=== PATIENT | female | born 1965 | race Caucasian/White ===

== ENCOUNTER → 2019-02-22 | Outpatient (CLI) | payer BC ==
--- NOTE | 2019-02-22 15:27 | RAD ---
CLINICAL HISTORY: Thyroid nodule, thyroid prominence COMPARISON: None available. TECHNIQUE: Ultrasound examination of the thyroid gland was performed FINDINGS: Right thyroid measures 4.4 x 1.4 x 1.4 cm. The left thyroid measures 4.3 x 1.3 x 1.7 cm. The isthmus measures 0.2 cm in thickness. Within the interpolar region of the right thyroid, there is a peripherally calcified 1 x 1 x 1 cm hypoechoic nodule. No dominant left upper pole thyroid nodule measures up to 4 mm. There is no regional cervical lymphadenopathy. IMPRESSION: A 1 cm peripherally calcified right thyroid nodule is seen. As per TI-RADS criteria, follow-up of a 1 cm TR 4 lesion is recommended. Electronically signed by: Alfonso Light MD (02/22/2019 3:24 PM) [facility]
== END | disposition home or self-care (01) ==
LOC: US 09:52
PROVIDERS: ATTEND Physician Assistant Medical
DX: E04.1 Nontoxic single thyroid nodule (principal)
CPT/HCPCS: 76536

== ENCOUNTER → 2019-04-06 | Outpatient (CLI) | payer BC ==
--- NOTE | 2019-04-07 12:29 | RAD ---
WRIST BILAT 3V History: Wrist pain Technique:3 views bilateral wrists. Comparison: None. Findings: Right wrist: Moderate right first carpometacarpal and mild triscaphe DJD. Normal limit. No fracture. Left wrist: Moderate first carpometacarpal and mild triscaphe DJD. Normal alignment. No fracture. Impression: 1. Moderate first carpometacarpal DJD bilaterally. Electronically signed by: Lorenzo Arroyo DO (04/07/2019 12:26 PM) [facility]
== END | disposition home or self-care (01) ==
LOC: DXRAD 12:50
PROVIDERS: ATTEND Physician Assistant Medical
DX: M19.032 Primary osteoarthritis, left wrist (principal); M19.031 Primary osteoarthritis, right wrist
CPT/HCPCS: 73110

== ENCOUNTER 2019-09-07 15:42 | Emergency (ER) | payer BC ==
[~2019-09-07] VITALS: Ht 167.6 cm; Wt 65.0 kg
[~2019-09-07 15:42] MED LIST: ARIP5TAB13 PO; BENZ1TAB5 PO; CLON0.5T4 PO; ESCITALOPRAM OX20 MG PO; IBUP200T44 PO; LISI10TA2 PO; OXCA600T3 PO; QUET300T5 PO
[2019-09-07 16:04] VITALS: BP 127/87
[2019-09-07] MEDS ORDERED: IOHEXOL 240 MG/ML 50ML VIAL. ONE (16:13)
[2019-09-07] MEDS ORDERED: CONTRAST GIVEN MC PRN (16:30)
[2019-09-07] MEDS: IV NORMAL SALINE 1,000ML 1,000 ML IV ONE (16:40)
[2019-09-07 16:58] LABS: BACTERIA,URINE 0 /HPF (0-FEW); BILIRUBIN,URINE NEG (NEG); CLARITY,URINE CLEAR; COLOR,URINE YELLOW; GLUCOSE,URINE NEG (NEG); GRANULAR CASTS,URINE OCC /HPF; HYALINE CASTS, URINE OCC /HPF; NITRITE,URINE NEG (NEG); RBC,URINE 0 /HPF (0-2); SQUAMOUS EPITHELIAL CELL,UR OCC /LPF; UROBILINOGEN,URINE 0.2 mg/dL (0.2 mg/dL)
[2019-09-07 16:58] LABS: BASO # 0.1 x10^3/uL (0.0-0.2); BASO % 1 % (0-3); EOS # 0.4 x10^3/uL (0.0-0.7); EOS % 6 % (0-3); HEMATOCRIT 40.5 % (36.0-47.0); HEMOGLOBIN 13.9 g/dL (12.0-15.5); LYMPH # 1.6 x10^3/uL (1.0-4.8); LYMPH % 24 % (24-48); MEAN CORPUSCULAR HEMOGLOBIN 30 pg (25-35); MEAN CORPUSCULAR HGB CONC 34 g/dL (31-37); MEAN CORPUSCULAR VOLUME 87 fL (79-100); MONO # 0.6 x10^3/uL (0.0-1.1); MONO % 9 % (0-9); NEUT % 60 % (31-73); PLATELET COUNT 342 x10^3/uL (140-400); RED BLOOD COUNT 4.68 x10^6/uL (3.50-5.40); WHITE BLOOD COUNT 6.6 x10^3/uL (4.0-11.0)
[2019-09-07] MEDS: IOHEXOL 300 MG/ML 75 ML VIAL. IV ONE (17:35)
[2019-09-07] MEDS: IOHEXOL 240 MG/ML 50ML VIAL. PO ONE (17:35)
[2019-09-07 17:45] LABS: CALCIUM 8.4 mg/dL (8.5-10.1); CREATININE 0.8 mg/dL (0.6-1.0); POTASSIUM 4.1 mmol/L (3.5-5.1)
[2019-09-07 17:50] LABS: ALBUMIN 3.6 g/dL (3.4-5.0); ALBUMIN/GLOBULIN RATIO 1.1 (1.0-1.7); TOTAL BILIRUBIN 0.2 mg/dL (0.2-1.0); TOTAL PROTEIN 6.9 g/dL (6.4-8.2)
--- NOTE | 2019-09-07 18:12 | PHYS DOC ---
Past History Past Medical History: Anxiety, Hypertension, Other Additional Past Medical Histor: Bipolar Past Surgical History: Hysterectomy Smoking: Cigarettes Additional Smoking Information: 06/10 PPD Alcohol Use: None Drug Use: None Adult General Chief Complaint Chief Complaint: ABDOMINAL PAIN HPI HPI 54-year-old female presents with report of abdominal discomfort with inability to urinate times one day. Patient also complains of constipation issues for the last week. Reports has not had a good bowel movement. Patient does report history of chronic constipation for which she is prescribed Linzess. Patient denies nausea or vomiting. Denies fever or chills. Denies trauma. Denies history of urinary retention. Denies history of kidney stones. Review of Systems Review of Systems Constitutional: Denies fever or chills Eyes: Denies redness or eye pain HENT: Denies nasal congestion or sore throat Respiratory: Denies cough or shortness of breath Cardiovascular: Denies chest pain or palpitations GI: Reports abdominal pain and constipation; denies nausea or vomiting : Reports inability to urinate; denies dysuria Musculoskeletal: Denies back pain or joint pain Integument: Denies rash or skin lesions Neurologic: Denies headache, focal weakness or sensory changes Complete systems were reviewed and found to be within normal limits, except as documented in this note. Current Medications Current Medications Current Medications Medications (Trade) Dose Ordered Sig/Maria Start Time Stop Time Status Last Admin Dose Admin Info (Do NOT chart on this entry -- for MONITORING) 1 each PRN DAILY PRN 09/07/19 16:30 09/09/19 16:29 Iohexol (Omnipaque 240 Mg/ml) 50 ml STK-MED ONCE 09/07/19 16:13 09/07/19 16:14 DC Iohexol (Omnipaque 300 Mg/ml) 75 ml 1X ONCE 09/07/19 16:15 09/07/19 16:16 DC 09/07/19 17:35 75 ML Sodium Chloride 1,000 ml @ 1,000 mls/hr 1X ONCE 09/07/19 16:00 09/07/19 16:59 DC 09/07/19 16:40 1,000 MLS/HR Allergies Allergies Allergies Coded Allergies Type Severity Reaction Last Updated Verified No Known Drug Allergies 08/03/19 No Physical Exam Physical Exam Constitutional: Well developed, well nourished, no acute distress, non-toxic appearance HENT: Normocephalic, atraumatic, oropharynx moist Eyes: Conjunctiva normal, no discharge Neck: Normal range of motion, no tenderness, supple Cardiovascular: Heart rate normal, regular rhythm Lungs & Thorax: Bilateral breath sounds clear to auscultation, no wheezing Abdomen: Soft, suprapubic fullness/distention, no rebound tenderness/guarding Skin: Warm, dry, no erythema, no rash Back: No tenderness, no CVA tenderness Extremities: No tenderness, ROM intact, no edema Neurologic: Alert and oriented X 3, no focal deficits noted Psychologic: Affect normal, judgment normal Current Patient Data Vital Signs Vital Signs Date Time Temp Pulse Resp B/P (MAP) Pulse Ox O2 Delivery O2 Flow Rate FiO2 09/07/19 16:04 98.3 88 16 127/87 (100) 97 Room Air Lab Results Laboratory Tests Test 09/07/19 16:25 09/07/19 16:35 Urine Collection Type Unknown Urine Color Yellow Urine Clarity Clear Urine pH 7.0 Urine Specific [place] 1.015 Urine Protein Neg (NEG-TRACE) Urine Glucose (UA) Neg mg/dL (NEG) Urine Ketones (Stick) Neg mg/dL (NEG) Urine Blood Neg (NEG) Urine Nitrite Neg (NEG) Urine Bilirubin Neg (NEG) Urine Urobilinogen Dipstick 0.2 mg/dL (0.2 mg/dL) Urine Leukocyte Esterase Neg (NEG) Urine RBC 0 /HPF (0-2) Urine WBC 1-4 /HPF (0-4) Urine Squamous Epithelial Cells Occ /LPF Urine Bacteria 0 /HPF (0-FEW) Urine Hyaline Casts Occ /HPF Urine Granular Casts Occ /HPF Urine Mucus Slight /LPF White Blood Count 6.6 x10^3/uL (4.0-11.0) Red Blood Count 4.68 x10^6/uL (3.50-5.40) Hemoglobin 13.9 g/dL (12.0-15.5) Hematocrit 40.5 % (36.0-47.0) Mean Corpuscular Volume 87 fL (79-100) Mean Corpuscular Hemoglobin 30 pg (25-35) Mean Corpuscular Hemoglobin Concent 34 g/dL (31-37) Red Cell Distribution Width 14.0 % (11.5-14.5) Platelet Count 342 x10^3/uL (140-400) Neutrophils (%) (Auto) 60 % (31-73) Lymphocytes (%) (Auto) 24 % (24-48) Monocytes (%) (Auto) 9 % (0-9) Eosinophils (%) (Auto) 6 % (0-3) H Basophils (%) (Auto) 1 % (0-3) Neutrophils # (Auto) 4.0 x10^3uL (1.8-7.7) Lymphocytes # (Auto) 1.6 x10^3/uL (1.0-4.8) Monocytes # (Auto) 0.6 x10^3/uL (0.0-1.1) Eosinophils # (Auto) 0.4 x10^3/uL (0.0-0.7) Basophils # (Auto) 0.1 x10^3/uL (0.0-0.2) Sodium Level 131 mmol/L (136-145) L Potassium Level 4.1 mmol/L (3.5-5.1) Chloride Level 96 mmol/L (98-107) L Carbon Dioxide Level 28 mmol/L (21-32) Anion Gap 7 (6-14) Blood Urea Nitrogen 15 mg/dL (7-20) Creatinine 0.8 mg/dL (0.6-1.0) Estimated GFR (Cockcroft-Gault) 75.0 BUN/Creatinine Ratio 19 (6-20) Glucose Level 96 mg/dL (70-99) Calcium Level 8.4 mg/dL (8.5-10.1) L Magnesium Level 2.0 mg/dL (1.8-2.4) Total Bilirubin 0.2 mg/dL (0.2-1.0) Aspartate Amino Transferase (AST) 19 U/L (15-37) Alanine Aminotransferase (ALT) 21 U/L (14-59) Alkaline Phosphatase 119 U/L (46-116) H Total Protein 6.9 g/dL (6.4-8.2) Albumin 3.6 g/dL (3.4-5.0) Albumin/Globulin Ratio 1.1 (1.0-1.7) Lipase 293 U/L (73-393) EKG EKG [] Radiology/Procedures Radiology/Procedures PROCEDURE: CT ABD PELV W/ORAL&IV CONTRAST CT scan of the abdomen and pelvis with contrast 09/07/2019 CLINICAL HISTORY: Lower abdominal pain and constipation. TECHNIQUE: After the oral and intravenous administration of contrast, contiguous, 5 mm axial sections were obtained through abdomen and pelvis. 75 cc of Omnipaque 300 were administered intravenously during this examination. One or more of the following individualized dose reduction techniques were utilized for this study: 1. Automated exposure control. 2. Adjustment of the mA and/or kV according to patient size. 3. Use of iterative reconstruction technique. FINDINGS: Images through the lung bases demonstrate minimal dependent subsegmental atelectasis bilaterally. The liver has a decreased attenuation consistent with fatty infiltration. A 8mm somewhat rounded low-attenuation lesion is seen involving the right lobe of the liver which demonstrates peripheral enhancement consistent with a hemangioma. The pancreas and adrenal glands are within normal limits. Calcified granulomas are seen involving the spleen. A 3.4 cm rounded low-attenuation lesion is seen involving the mid/lower pole the right kidney. This likely represents a cyst. No further imaging workup is recommended. Atrophy of the left kidney is seen. Marked thinning of the left renal cortex is noted. Severe left hydronephrosis is seen. A transition point is seen at the level of the left UPJ consistent with a chronic left UPJ obstruction. Nonobstructing calculi are seen involving the left kidney. These measure 4 to 7 mm in size. Atherosclerotic calcification of the abdominal aorta is seen. The abdominal aorta tapers normally. The gallbladder is contracted. No free fluid or free air is seen within the abdomen. Air and stool are seen throughout the colon. Images through the pelvis demonstrate a Ibrahim catheter within the urinary bladder which is contracted. Calcifications are seen within the pelvis consistent with phleboliths. No free fluid is seen. Very mild S-shaped curvature of the thoracolumbar spine is noted. Degenerative changes are seen involving the thoracic and throughout the lumbar spine along with both hips. IMPRESSION: 1. Severe left hydronephrosis with left renal atrophy and cortical thinning due to a chronic left UPJ obstruction. 2. No acute abnormality is seen. Electronically signed by: Matias Pond MD (09/07/2019 6:08 PM) [id number] Course & Med Decision Making Course & Med Decision Making Pertinent Labs and Imaging studies reviewed. (See chart for details) Patient presents with history of present illness and physical exam concerning for urinary retention and constipation. Bladder scan high. Ibrahim catheter placed with 600 mls returned. UA without signs of infection. Labs obtained and posted to chart. CT abdomen/pelvis with signs of chronic hydronephrosis on left side. Patient given CT imaging to follow-up with PCP and/or urologist. Ibrahim catheter changed to leg bag. Patient stable for discharge with outpatient follow-up with PCP/urologist. Discussed findings and plan with patient, who acknowledges understanding and agreement. Dragon Disclaimer Dragon Disclaimer This electronic medical record was generated, in whole or in part, using a voice recognition dictation system. Departure Departure: Impression: Primary Impression: Urinary retention Additional Impressions: Constipation Hydronephrosis, left Disposition: HOME, SELF-CARE Condition: STABLE Referrals: LEONARD BARNETT (PCP) Patient Instructions: Constipation, Adult, [id number], Ibrahim Catheter Care, Adult, Hydronephrosis, Urinary Retention, Acute, Female, [id number] Additional Instructions: Please call and follow up with an Urologist and/or your family physician. Continue previously prescribed constipation medications. May also add stool softners as needed. Increased fluid hydration. Problem Qualifiers Additional Impressions: Constipation Constipation type: unspecified constipation type Qualified Codes: K59.00 - Constipation, unspecified NORBERT WHITTAKER DO Sep 07, 2019 18:12
== END 2019-09-07 19:45 | disposition home or self-care (01) ==
LOC: ER 15:51
DX: N13.2 Hydronephrosis with renal and ureteral calculous obstruction (principal); K59.00 Constipation, unspecified; R33.9 Retention of urine, unspecified; I10 Essential (primary) hypertension; F17.210 Nicotine dependence, cigarettes, uncomplicated; Z90.710 Acquired absence of both cervix and uterus
CPT/HCPCS: 36415; 51702; 74177; 80053; 81001; 83690; 83735; 85025; 99285; Q9966; Q9967; J7030

== ENCOUNTER 2019-09-28 14:25 | Emergency (ER) | payer BC ==
[~2019-09-28] VITALS: Ht 170.2 cm; Wt 64.1 kg
--- NOTE | 2019-09-28 15:08 | PHYS DOC ---
Past History Past Medical History: Anxiety, Bipolar, Depression, Hypertension, Other Additional Past Medical Histor: mood swings Past Surgical History: Hysterectomy Smoking: Cigarettes Alcohol Use: None Drug Use: None General Adult EDM: Chief Complaint: Neck Pain HPI: HPI: Patient is a 54 year old female with history of hypertension, bipolar disorder, anxiety and depression, mood disorder who presents with complaining of neck pain. Patient states she has had right-sided neck pain intermittently for several years that getting worse for the last 2 days as a muscle spasm and getting worse with movement. Patient complaining of problem with her balance for the last 2 months as a constant problem and bilateral upper and lower extremity numbness with negative MRI of brain and spine 2 weeks ago. Patient denies fever and chills, cough, chest pain or shortness of breath, new focal neuro deficit, vomiting and diarrhea. Patient complaining of chronic constipation. Patient was seen by her primary care physician and anthropology lecturer and neurologist and has appointment with a new physician. Patient states she wanted to have the answer for the reason of her problems. Review of Systems: Review of Systems: Constitutional: Denies fever or chills Eyes: Denies change in visual acuity HENT: Denies nasal congestion or sore throat Respiratory: Denies cough or shortness of breath Cardiovascular: Denies chest pain or edema GI: Denies abdominal pain, nausea, vomiting, bloody stools or diarrhea : Denies dysuria Musculoskeletal: Reports neck pain and chronic pain Integument: Denies rash Neurologic: Denies headache, focal weakness or sensory changes Endocrine: Denies polyuria or polydipsia Lymphatic: Denies swollen glands Psychiatric: Denies depression or anxiety Heart Score: Risk Factors: Risk Factors: DM, Current or recent (<one month) smoker, HTN, HLP, family history of CAD, obesity. Risk Scores: Score 0 - 3: 2.5% MACE over next 6 weeks - Discharge Home Score 4 - 6: 20.3% MACE over next 6 weeks - Admit for Clinical Observation Score 7 - 10: 72.7% MACE over next 6 weeks - Early Invasive Strategies Current Medications: Current Meds: Current Medications Medications (Trade) Dose Ordered Sig/Maria Start Time Stop Time Status Last Admin Dose Admin Fentanyl Citrate (Fentanyl 2ml Vial) 50 mcg 1X ONCE 09/28/19 15:00 09/28/19 15:01 UNV Allergies: Allergies: Allergies Coded Allergies Type Severity Reaction Last Updated Verified No Known Drug Allergies 08/03/19 No Physical Exam: PE: Constitutional: Well developed, well nourished, mild distress, non-toxic appearance. [] HENT: Normocephalic, atraumatic. Eyes: PERRLA, EOMI, conjunctiva normal, no discharge. [] Neck: No midline tenderness, no edema, right para muscle spinal spasm, normal range of motion, no tenderness, supple, no stridor. [] Cardiovascular:Heart rate regular rhythm, no murmur [] Lungs & Thorax: Bilateral breath sounds clear to auscultation [] Abdomen: Bowel sounds normal, soft, no tenderness, no masses, no pulsatile masses. [] Skin: Warm, dry, no erythema, no rash. [] Back: No tenderness, no CVA tenderness. [] Extremities: No tenderness, no cyanosis, no clubbing, ROM intact, no edema. [] Neurologic: Alert and oriented X 3, no focal deficits noted. [] Psychologic: Affect anxious, judgement normal, mood normal. [] Current Patient Data: Vital Signs: Vital Signs Date Time Temp Pulse Resp B/P (MAP) Pulse Ox O2 Delivery O2 Flow Rate FiO2 09/28/19 14:36 98.4 86 16 142/93 (109) 97 Room Air EKG: EKG: [] Radiology/Procedures: Radiology/Procedures: [] Course & Med Decision Making: Course & Med Decision Making Evaluation of patient in ER showed 54-year-old female patient with multiple chronic problem presented to ER and complaining of increasing chronic neck pain and wants to know what is the problem with her. Patient was advised that she needs to follow-up with her specialist and continue home medication. Patient treated with fentanyl in ER and felt better. Patient had unremarkable MRI of head and neck 2 weeks ago and had a stable vital sign and physical exam except for anxiety. I've spoken with the patient and/or caregivers. I've explained the patient's condition, diagnosis and treatment plan based on information available to me at this time. I've answered the patient's and/or caregivers questions and addressed any concerns. The patient and/or caregivers have a good understanding the patient's diagnosis, condition and treatment plan as can be expected at this point. Vital signs have been stabilized. The patient's condition is stable for discharge from the emergency department. The patient will pursue further outpatient evaluation with her primary care provider or other designated consulting physician as outlined in the discharge instructions. Patient and/or caregivers are agreeable to this plan of care and follow-up instructions have been explained in detail. The patient and/or caregivers have received these instructions in written format and expressed understanding of these discharge instructions. The patient and her caregivers are aware that if any significant change in condition or worsening of symptoms should prompt him to immediately return to this of the closest emergency department. If an emergent department is not readily available I would encourage him to call 911. Dragon Disclaimer: Dragon Disclaimer: This electronic medical record was generated, in whole or in part, using a voice recognition dictation system. Departure Departure: Impression: Primary Impression: Cervical paraspinal muscle spasm Additional Impressions: Balance problem History of bipolar disorder Disposition: 01 HOME, SELF-CARE Condition: STABLE Referrals: LEONARD BARNETT (PCP) Patient Instructions: Cervical Sprain Additional Instructions: Drink plenty of liquids Follow-up with your primary care physician in 3-5 days Return to ER if not getting better Continue your current medication Apply ice on your neck Scripts Cyclobenzaprine Hcl (CYCLOBENZAPRINE HCL) 10 Mg Tablet 1 TAB PO TID for pain, #15 TAB Prov: BEKAH GUTHRIE MD 09/28/19 BEKAH GUTHRIE MD Sep 28, 2019 15:08
[2019-09-28 15:15] VITALS: BP 140/90
[2019-09-28] MEDS ORDERED: CYCL-331 PO (15:17)
== END 2019-09-28 15:15 | disposition home or self-care (01) ==
LOC: ER 14:25
DX: M62.838 Other muscle spasm (principal); M54.2 Cervicalgia; G89.29 Other chronic pain; F31.9 Bipolar disorder, unspecified; F41.9 Anxiety disorder, unspecified; I10 Essential (primary) hypertension; F17.210 Nicotine dependence, cigarettes, uncomplicated
CPT/HCPCS: 96372; 99283; J3010

== ENCOUNTER 2020-01-25 12:57 | Emergency (ER) | payer BC ==
[~2020-01-25] VITALS: Ht 167.6 cm; Wt 62.0 kg
[~2020-01-25 12:57] MED LIST changes: +CYCL-331 PO
[2020-01-25 15:21] LABS: CALCIUM 9.1 mg/dL (8.5-10.1); CREATININE 0.9 mg/dL (0.6-1.0); GFR 65.5; POTASSIUM 5.2 mmol/L (3.5-5.1)
[2020-01-25 15:23] LABS: BASO % 0 % (0-3); EOS # 0.1 x10^3/uL (0.0-0.7); EOS % 1 % (0-3); HEMOGLOBIN 14.5 g/dL (12.0-15.5); LYMPH # 0.9 x10^3/uL (1.0-4.8); LYMPH % 7 % (24-48); MEAN CORPUSCULAR HEMOGLOBIN 29 pg (25-35); MEAN CORPUSCULAR HGB CONC 34 g/dL (31-37); MEAN CORPUSCULAR VOLUME 86 fL (79-100); MONO # 0.5 x10^3/uL (0.0-1.1); MONO % 5 % (0-9); NEUT # 10.3 x10^3uL (1.8-7.7); NEUT % 87 % (31-73); PLATELET COUNT 309 x10^3/uL (140-400); RED BLOOD COUNT 5.02 x10^6/uL (3.50-5.40); RED CELL DISTRIBUTION WIDTH 12.7 % (11.5-14.5); WHITE BLOOD COUNT 11.7 x10^3/uL (4.0-11.0)
[2020-01-25 15:27] LABS: ALBUMIN 3.8 g/dL (3.4-5.0); ALBUMIN/GLOBULIN RATIO 1.1 (1.0-1.7); TOTAL BILIRUBIN 0.2 mg/dL (0.2-1.0); TOTAL PROTEIN 7.4 g/dL (6.4-8.2)
[2020-01-25 15:51] VITALS: BP 142/89
--- NOTE | 2020-01-25 15:56 | PHYS DOC ---
Past History Past Medical History: Bipolar Additional Past Medical Histor: mood swings Past Surgical History: Cervical Fusion Smoking: Cigarettes Additional Smoking Information: 06/10 PPD Alcohol Use: None Drug Use: None General Adult EDM: Chief Complaint: NAUSEA/VOMITING/DIARRHEA HPI: HPI: Patient is a 54-year-old female who was sent here from her primary care provider office due to nausea. Patient had cervical spine fusion 2 weeks ago, she is on pain medication and muscle relaxer and other psych medication. Patient was in her primary care provider office for routine follow-up when she feels nauseous. Patient was given a shot of nausea medication in the clinic and sent her here for evaluation. Patient denies any headache, no neck pain, no abdominal pain, no cough, no fever. Patient denies any chest pain, no trouble breathing. Review of Systems: Review of Systems: Constitutional: Denies fever or chills Eyes: Denies change in visual acuity HENT: Denies nasal congestion or sore throat Respiratory: Denies cough or shortness of breath Cardiovascular: Denies chest pain or edema GI: Denies abdominal pain, , bloody stools or diarrhea . Positive for nausea and vomiting. : Denies dysuria Musculoskeletal: Denies back pain or joint pain Integument: Denies rash Neurologic: Denies headache, focal weakness or sensory changes Endocrine: Denies polyuria or polydipsia Lymphatic: Denies swollen glands Psychiatric: Denies depression or anxiety Heart Score: Risk Factors: Risk Factors: DM, Current or recent (<one month) smoker, HTN, HLP, family history of CAD, obesity. Risk Scores: Score 0 - 3: 2.5% MACE over next 6 weeks - Discharge Home Score 4 - 6: 20.3% MACE over next 6 weeks - Admit for Clinical Observation Score 7 - 10: 72.7% MACE over next 6 weeks - Early Invasive Strategies Allergies: Allergies: Allergies Coded Allergies Type Severity Reaction Last Updated Verified No Known Drug Allergies 08/03/19 No Physical Exam: PE: Constitutional: Well developed, well nourished, no acute distress, non-toxic appearance. [] HENT: Normocephalic, atraumatic, bilateral external ears normal, oropharynx moist, no oral exudates, nose normal. [] Eyes: PERRLA, EOMI, conjunctiva normal, no discharge. [] Neck: Normal range of motion, no tenderness, supple, no stridor. [] Cardiovascular:Heart rate regular rhythm, no murmur [] Lungs & Thorax: Bilateral breath sounds clear to auscultation [] Abdomen: Bowel sounds normal, soft, no tenderness, no masses, no pulsatile masses. [] Skin: Warm, dry, no erythema, no rash. [] Back: No tenderness, no CVA tenderness. [] Extremities: No tenderness, no cyanosis, no clubbing, ROM intact, no edema. [] Neurologic: Alert and oriented X 3, normal motor function, normal sensory function, no focal deficits noted. [] Psychologic: Affect normal, judgement normal, mood normal. [] Current Patient Data: Labs: Laboratory Tests Test 01/25/20 14:50 White Blood Count 11.7 x10^3/uL (4.0-11.0) H Red Blood Count 5.02 x10^6/uL (3.50-5.40) Hemoglobin 14.5 g/dL (12.0-15.5) Hematocrit 43.0 % (36.0-47.0) Mean Corpuscular Volume 86 fL (79-100) Mean Corpuscular Hemoglobin 29 pg (25-35) Mean Corpuscular Hemoglobin Concent 34 g/dL (31-37) Red Cell Distribution Width 12.7 % (11.5-14.5) Platelet Count 309 x10^3/uL (140-400) Neutrophils (%) (Auto) 87 % (31-73) H Lymphocytes (%) (Auto) 7 % (24-48) L Monocytes (%) (Auto) 5 % (0-9) Eosinophils (%) (Auto) 1 % (0-3) Basophils (%) (Auto) 0 % (0-3) Neutrophils # (Auto) 10.3 x10^3uL (1.8-7.7) H Lymphocytes # (Auto) 0.9 x10^3/uL (1.0-4.8) L Monocytes # (Auto) 0.5 x10^3/uL (0.0-1.1) Eosinophils # (Auto) 0.1 x10^3/uL (0.0-0.7) Basophils # (Auto) 0.0 x10^3/uL (0.0-0.2) Platelet Estimate Pending Sodium Level 130 mmol/L (136-145) L Potassium Level 5.2 mmol/L (3.5-5.1) H Chloride Level 93 mmol/L (98-107) L Carbon Dioxide Level 32 mmol/L (21-32) Anion Gap 5 (6-14) L Blood Urea Nitrogen 9 mg/dL (7-20) Creatinine 0.9 mg/dL (0.6-1.0) Estimated GFR (Cockcroft-Gault) 65.5 BUN/Creatinine Ratio 10 (6-20) Glucose Level 95 mg/dL (70-99) Calcium Level 9.1 mg/dL (8.5-10.1) Magnesium Level 2.0 mg/dL (1.8-2.4) Total Bilirubin 0.2 mg/dL (0.2-1.0) Aspartate Amino Transferase (AST) 24 U/L (15-37) Alanine Aminotransferase (ALT) 23 U/L (14-59) Alkaline Phosphatase 135 U/L (46-116) H Total Protein 7.4 g/dL (6.4-8.2) Albumin 3.8 g/dL (3.4-5.0) Albumin/Globulin Ratio 1.1 (1.0-1.7) Vital Signs: Vital Signs Date Time Temp Pulse Resp B/P (MAP) Pulse Ox O2 Delivery O2 Flow Rate FiO2 01/25/20 15:51 79 16 142/89 (106) 99 01/25/20 13:29 97.6 EKG: EKG: [] Radiology/Procedures: Radiology/Procedures: [] Course & Med Decision Making: Course & Med Decision Making Pertinent Labs and Imaging studies reviewed. (See chart for details) Patient is a 53-year-old female who was evaluated in ER due to nausea and vomiting, patient was given medication in the ER, she feels much better. Work- up did not find any acute problem. Patient will be discharged home with antinausea medication. Dragon Disclaimer: Dragon Disclaimer: This electronic medical record was generated, in whole or in part, using a voice recognition dictation system. Departure Departure: Impression: Primary Impression: Nausea & vomiting Disposition: 01 HOME/RESIDENCE PRIOR TO ADM Condition: STABLE Referrals: LEONARD BARNETT (PCP) please call your doctor for follow up this week. Patient Instructions: Nausea and Vomiting Additional Instructions: Thank you for visiting our Emergency Department. We appreciate you trusting us with your care. If any additional problems come up don't hesitate to return to visit us. Please follow up with your primary care provider so they can plan additional care if needed and know about the problem that you had. If symptoms worsen come back to the Emergency Department. Any concerning symptoms that start such as chest pain, shortness of air, weakness or numbness on one side of the body, running high fevers or any other concerning symptoms return to the ER. Scripts Ondansetron Hcl (ZOFRAN) 4 Mg Tablet 1 TAB PO Q6HRS PRN for NAUSEA, #20 TAB Prov: LISA DAWSON DO 01/25/20 Justification of Admission: Justification of Admission: Justification of Admission Dx: N/A LISA DAWSON DO Jan 25, 2020 15:56
[2020-01-25] MEDS ORDERED: ONDA4TAB7 PO (16:04)
[2020-01-25 17:10] LABS: % BANDS 3 % (0-9); % LYMPHS 12 % (24-48); % MONOS 8 % (0-10); % SEGS 77 % (35-66)
[2020-01-25 17:11] LABS: PLT ESTIMATE ADEQUATE (ADEQUATE)
== END 2020-01-25 16:16 | disposition home or self-care (01) ==
LOC: ER 12:57
DX: R11.2 Nausea with vomiting, unspecified (principal); F31.9 Bipolar disorder, unspecified; F17.210 Nicotine dependence, cigarettes, uncomplicated
CPT/HCPCS: 36415; 80053; 83735; 85007; 85025; 99283

== ENCOUNTER 2020-08-25 15:28 | Emergency (ER) | payer SELFPAY ==
[~2020-08-25] VITALS: Ht 167.6 cm; Wt 58.7 kg
[~2020-08-25 15:28] MED LIST changes: +LISI10TA16 PO; -LISI10TA2 PO; +ONDA4TAB7 PO
--- NOTE | 2020-08-25 16:13 | PHYS DOC ---
Past History Past Medical History: Bipolar Additional Past Medical Histor: mood swings (NORBERT RAMOS APRN) Past Surgical History: Cervical Fusion (NORBERT RAMOS APRN) Smoking: Cigarettes Alcohol Use: None Drug Use: None (NORBERT RAMOS APRN) Adult General Chief Complaint Chief Complaint: PAIN ON URINATION [facility] HPI Patient is a 55-year-old female presents emergency department complaining of mouth odorous urine for the past 2 weeks. Patient states this is just like when she has a urinary tract infection, has been taking Azo without any relief. Patient also states that she has noticed her feet looking a little discolored over the past couple of days. Patient denies any numbness or tingling to her lower extremities. Patient denies any headaches, shortness of breath, chest congestion, chest pain, rashes to her skin, swelling to her extremities. Patient denies any other physical complaints or physical concerns. (NORBERT RAMOS APRN) Review of Systems Review of Systems 14 body systems of review of systems have been reviewed. See HPI for pertinent positives and negative responses, otherwise all other systems are negative, nonpertinent or noncontributory. (NORBERT RAMOS APRN) Allergies Allergies Allergies Coded Allergies Type Severity Reaction Last Updated Verified No Known Drug Allergies 08/03/19 No (NORBERT RAMOS APRN) Physical Exam Physical Exam Constitutional: Well developed, well nourished, no acute distress, non-toxic appearance. 55-year-old female in no apparent distress. HENT: Normocephalic, atraumatic, bilateral external ears normal, oropharynx moist, no oral exudates, nose normal. Oropharynx within normal limits, no infectious process appreciated, no lymphadenopathy of the head or neck. Bilateral TMs within normal limits, no drainage from external auditory canals. Eyes: PERRLA, EOMI, conjunctiva normal, no discharge. Neck: Normal range of motion, no tenderness, supple, no stridor. No meningismus signs, no nuchal rigidity, no C-spine tenderness. Cardiovascular:Heart rate regular rhythm, heart sounds S1-S2, distal cap refill less than 2 seconds, no peripheral edema appreciated. Lungs & Thorax: Bilateral breath sounds clear to auscultation all lung ceja, no adventitious lung sounds appreciated. Abdomen: Bowel sounds normal, soft, no tenderness, no masses, no pulsatile masses. Skin: Warm, dry, no erythema, no rash. Back: No tenderness to palpation along vertebral column or adjacent musculoskeletal structures. Extremities: No tenderness, no cyanosis, no clubbing, ROM intact, no edema. Patient's bilateral feet nonerythematous, distal cap refill less than 2 seconds, +2 dorsalis pedis and posterior tibial pulses. Color slightly cyanotic without lesions, swelling, decreased sensation, or decreased movement. No infectious process appreciated. No definitive demarcation appreciated, no temperature change to palpation appreciated. Neurologic: Alert and oriented X 3, normal motor function, normal sensory function, no focal deficits noted. [] Psychologic: Affect normal, judgement normal, mood normal. [] (NORBERT RAMOS APRN) EKG EKG [] (NORBERT RAMOS APRN) Radiology/Procedures Radiology/Procedures [] (NORBERT RAMOS APRN) Heart Score C/O Chest Pain: No Risk Factors: Risk Factors: DM, Current or recent (<one month) smoker, HTN, HLP, family history of CAD, obesity. Risk Scores: Risk Factors: DM, Current or recent (<one month) smoker, HTN, HLP, family history of CAD, obesity. (NORBERT RAMOS APRN) Course & Med Decision Making Course & Med Decision Making Pertinent Labs and Imaging studies reviewed. (See chart for details) 55-year-old female, vital signs reviewed, presents to the emergency department complaining of malodorous urine and bluish color of the feet. Physical examination noted slight cyanosis to feet, there was no decreased sensation, cap refill was less than 2 seconds, there was no swelling or edema, the skin was intact to both feet, there was no definitive demarcation, patient denied any recent trauma to her feet, denies a family history of diabetes, does smoke cigarettes, exam consistent with Raynaud's versus peripheral artery disease versus venous insufficiency, a urinalysis assay was sent to the lab. Patient's urine was infected, discussed with patient discoloration of both feet, this is not a frostbite, unlikely an infectious process, it is not painful, encourage patient to follow-up with her primary care physician this week for ongoing investigation of her acrocyanotic feet, encouraged patient to immediat lavern return to the emergency department for decreased sensation or worsening of symptoms. Encourage patient to stop smoking cigarettes. Discussed with patient antibiotic use, follow-up with primary care physician, return to ER precautions. Patient gave verbal understanding of discharge home instructions, follow-up PCP, RT ER precautions. Was discharged home without incident. (NORBERT RAMOS APRN) Course & Med Decision Making I oversaw on the above date of service of this patient and discussed the care with the WORKFORCE PLANNING ANALYST. I agree with the findings, plan of care, and disposition as documented. Electronically signed, Rick Landeros DO (RICK LANDEROS DO) Ty Disclaimer Dragon Disclaimer This electronic medical record was generated, in whole or in part, using a voice recognition dictation system. (NORBERT RAMOS APRN) Departure Departure: Impression: Primary Impression: Urinary tract infection Additional Impression: Venous insufficiency of both lower extremities Disposition: 01 DC HOME SELF CARE/HOMELESS Condition: STABLE Referrals: LEONARD BARNETT (PCP) Patient Instructions: Urinary Tract Infection Additional Instructions: Please take medications as prescribed, please follow-up with your primary care doctor this week for the discoloration of your lower extremities as we discussed. Please return to the emergency department for worsening symptoms or other concerns. EMERGENCY DEPARTMENT GENERAL DISCHARGE INSTRUCTIONS Thank you for coming to [facility] (ED) today and trusting us with you care. We trust that you had a positivie experience in our Emergency Department. If you wish to speak to the department management, you may call the director at [phone]. YOUR FOLLOW UP INSTRUCTIONS ARE FOLLOWS: 1. Do you have a private Doctor? If you do not have a private doctor, please ask for a resource list of physicians or clinics that may be able to assist you with follow up care. 2. The Emergency Physician has interpreted your x-rays. The X-Ray specialist will also review them. If there is a change in the findings, you will be notified in 48 hours when at all possible. 3. A lab test or culture has been done, your results will be reviewed and you will be notified if you need a change in treatment. ADDITIONAL INSTRUCTIONS AND INFORMATION: 1. Your care today has been supervised by a physician who is specially trained in emergency care. Many problems require more than one evaluation for a complete diagnosis and treatment. We recommend that you schedule your follow up appointment as recommended to ensure complete treatment of you illness or injury. If you are unable to obtain follow up care and continue to have a problem, or if your condition worsens, we recommend that you return to the ED. 2. We are not able to safely determine your condition over the phone nor are we able to give sound medical advice over the phone. For these safety reasons, if you call for medical advice we will ask you to come to the ED for further evaluation. 3. If you have any questions regarding these discharge instructions please call the ED at [phone]. SAFETY INFORMATION: In the interest of safety, wellness, and injury prevention; we encourage you to wear your sealbelt, if you smoke; quite smoking, and we encourage family to use a protective helmet for bicycling and other sporting events that present an increased risk for head injury. IF YOUR SYMPTOMS WORSEN OR NEW SYMPTOMS DEVELOP, OR YOU HAVE CONCERNS ABOUT YOUR CONDITION; OR IF YOUR CONDITION WORSENS WHILE YOU ARE WAITING FOR YOUR FOLLOW UP APPOINTMENT; EITHER CONTACT YOUR PRIMARY CARE DOCTOR, THE PHYSICIAN WHOSE NAME AND NUMBER YOU WERE GIVEN, OR RETURN TO THE ED IMMEDIATELY. Scripts Cephalexin (CEPHALEXIN) 500 Mg Tablet 1 TAB PO BID for UTI, #20 TAB 0 Refills Prov: NORBERT RAMOS APRN 08/25/20 Problem Qualifiers Primary Impression: Urinary tract infection Urinary tract infection type: site unspecified Hematuria presence: with hematuria Qualified Codes: N39.0 - Urinary tract infection, site not specified; R31.9 - Hematuria, unspecified NORBERT RAMOS APRN Aug 25, 2020 16:13 RICK LANDEROS DO Aug 27, 2020 06:28
[2020-08-25 17:09] LABS: BILIRUBIN,URINE NEG (NEG); CLARITY,URINE CLOUDY; COLOR,URINE YELLOW; GLUCOSE,URINE NEG (NEG); NITRITE,URINE NEG (NEG); UROBILINOGEN,URINE 0.2 mg/dL (0.2 mg/dL)
[2020-08-25 17:10] LABS: BACTERIA,URINE MOD /HPF (0-FEW); SQUAMOUS EPITHELIAL CELL,UR MOD /LPF; WBC,URINE TNTC /HPF (0-4)
[2020-08-25] MEDS ORDERED: CEPH500T PO (17:27)
[2020-08-25 17:30] VITALS: BP 141/81
== END 2020-08-25 17:30 | disposition home or self-care (01) ==
LOC: ER 15:28
DX: N39.0 Urinary tract infection, site not specified (principal); R31.9 Hematuria, unspecified; I87.2 Venous insufficiency (chronic) (peripheral); F31.9 Bipolar disorder, unspecified; F17.210 Nicotine dependence, cigarettes, uncomplicated
CPT/HCPCS: 81001; 87077; 87086; 87186; 99283

== ENCOUNTER 2021-08-29 21:22 | Emergency (ER) | payer MEDICAID ==
[~2021-08-29] VITALS: Ht 167.6 cm; Wt 65.5 kg
[2021-08-29 21:22] VITALS: BP 153/83
[~2021-08-29 21:22] MED LIST changes: +CEPH500T PO; -CYCL-331 PO; +CYCL10TA19 PO
--- NOTE | 2021-08-29 22:24 | PHYS DOC ---
Past History Past Medical History: Bipolar, UTI Additional Past Medical Histor: mood swings, SPINAL CORD PROBLEM-UNDIAGNOSED Past Surgical History: Cervical Fusion Smoking: Cigarettes Alcohol Use: None Drug Use: None General Adult EDM: Chief Complaint: SORE THROAT HPI: HPI: ".. I got a sore throat..." and neck on this Rt side.. I have had problems with her neck for 20 years... It just really bad tonight the" Patient is a 56 year old female who presents with above hx and complaints tender neck strap muscles and paraspinal muscles on the right. Patient denies any injury. No fever or chills. Does have some mild adenopathy right neck. Patient reportedly normally follows at for this complaint. Patient also follow-up with Dr. Garcia. No recent travel. No sick ill contacts. No history immunosuppression. Patient states she has problems with her gait because of cervical impingement and spinal impingement areas. Patient does use a cane to walk. Review of Systems: Review of Systems: Constitutional: Denies fever or chills Eyes: Denies change in visual acuity HENT: Denies nasal congestion or sore throat. Complains of neck pain Respiratory: Denies cough or shortness of breath Cardiovascular: Denies chest pain or edema GI: Denies abdominal pain, nausea, vomiting, bloody stools or diarrhea : Denies dysuria Musculoskeletal: Complains of chronic neck, back pain and joint pain Integument: Denies rash Neurologic: Denies headache, focal weakness or sensory changes Endocrine: Denies polyuria or polydipsia Lymphatic: Denies swollen glands Psychiatric: Denies depression or anxiety Family History: Family History: Noncontributory to presentation Current Medications: Current Meds: See nursing for home meds Allergies: Allergies: Allergies Coded Allergies Type Severity Reaction Last Updated Verified No Known Drug Allergies 08/03/19 No Physical Exam: PE: Constitutional: Moderate acute distress, non-toxic appearance. [] HENT: Normocephalic, atraumatic, bilateral external ears normal, oropharynx moist, no oral exudates, nose normal. [] Has some pain in right mandible trigeminal distribution. Temporal artery nontender Eyes: PERRLA, EOMI, conjunctiva normal, no discharge. [] Neck: Patient limits range of motion because of tenderness, most of the tenderness on the right side of cervical chain. no stridor. [] No bruits appreciated Cardiovascular:Heart rate regular rhythm, no murmur [] Lungs & Thorax: Bilateral breath sounds equal apex with scattered wheezes on auscultation [] Abdomen: Bowel sounds normal, soft, no tenderness, no masses, no pulsatile masses. [] Skin: Warm, dry, no erythema, no rash. [] Back: Some lumbar sacral per spinal muscle tenderness, no CVA tenderness. [] Extremities: No tenderness, no cyanosis, no clubbing, ROM intact, no edema. [] Has a limping and guarded gait uses cane for balance Neurologic: Alert and oriented X 3, normal motor function, normal sensory function, no focal deficits noted. [] Psychologic: Affect anxious, judgement normal, mood normal. [] Current Patient Data: Vital Signs: Vital Signs Date Time Temp Pulse Resp B/P (MAP) Pulse Ox O2 Delivery O2 Flow Rate FiO2 08/29/21 21:22 97 153/83 (106) 96 08/29/21 21:22 18 Room Air EKG: EKG: [] Radiology/Procedures: Radiology/Procedures: [][place] [address] IMAGING REPORT Signed PATIENT: HUMAIRA MICHAEL ACCOUNT: [id number] : 1965 LOCATION: ER AGE: 56 SEX: F EXAM STATUS: REG ER ORD. PHYSICIAN: YOLA MEDINA MD REASON: Right sided facial, ear and neck pain with swelling, no trauma PROCEDURE: CT MAXILLOFACIAL WO CONTRAST CT MAXILLOFACIAL WITHOUT CONTRAST, CT NECK SOFT TISSUE WITH IV CONTRAST History: Right-sided facial, ear and neck pain with swelling. No trauma. Comparison: Thyroid ultrasound 02/22/2019 Technique: CT of the facial bones without contrast. CT of the neck with intravenous contrast. Findings: No mastoid effusion. There is trace right maxillary sinus mucosal thickening. The remainder the paranasal sinuses are clear. No facial fracture. No aggressive osseous erosive process. The external auditory canal, middle ear and IACs are unremarkable. The bilateral parotid and submandibular glands are unremarkable. There is peripheral calcification in a right thyroid nodule. No mucosal lesion in the upper aerodigestive tract. No adenopathy. No abscess is identified. No superficial soft tissue edema or skin thickening. The vasculature is within normal limits. The lung apices are clear. Postsurgical changes from C3-C4 ACDF. Degenerative disc disease C4-C5, C5-C6 and C6-C7 with left neural foraminal stenosis at C4-C5, bilateral neural foraminal stenosis at C5-C6 and left neural foraminal stenosis at C6-C7. Impression: 1. No mass, adenopathy or abscess in the face or neck. 2. Calcified right thyroid nodule, previously evaluated in 2019 with recommendation for follow-up. Recommend routine thyroid ultrasound if not already performed. 3. Degenerative changes in the cervical spine with neural foraminal stenosis at multiple levels, greatest at C5-C6. ------ Exposure: One or more of the following individualized dose reduction techniques were utilized for this examination: 1. Automated exposure control 2. Adjustment of the mA and/or kV according to patient size 3. Use of iterative reconstruction technique. Electronically signed by: Matti Alicia MD (08/30/2021 12:03 AM) [facility] DICTATED AND SIGNED BY: MATTI ALICIA MD DATE: 08/29/21 9915 CC: YOLA MEDINA MD; MARISOL [place] ~ [place] [address] IMAGING REPORT Signed PATIENT: HUMAIRA MICHAEL ACCOUNT: [id number] : 1965 LOCATION: ER AGE: 56 SEX: F EXAM STATUS: REG ER ORD. PHYSICIAN: YOLA MEDINA MD REASON: Rt side facial, ear & neck pain w/swelling, no trauma Om[facility] 300 75 PROCEDURE: CT SOFT TISSUE NECK W/CONTRAST CT MAXILLOFACIAL WITHOUT CONTRAST, CT NECK SOFT TISSUE WITH IV CONTRAST History: Right-sided facial, ear and neck pain with swelling. No trauma. Comparison: Thyroid ultrasound 02/22/2019 Technique: CT of the facial bones without contrast. CT of the neck with intravenous contrast. Findings: No mastoid effusion. There is trace right maxillary sinus mucosal thickening. The remainder the paranasal sinuses are clear. No facial fracture. No aggressive osseous erosive process. The external auditory canal, middle ear and IACs are unremarkable. The bilateral parotid and submandibular glands are unremarkable. There is peripheral calcification in a right thyroid nodule. No mucosal lesion in the upper aerodigestive tract. No adenopathy. No abscess is identified. No superficial soft tissue edema or skin thickening. The vasculature is within normal limits. The lung apices are clear. Postsurgical changes from C3-C4 ACDF. Degenerative disc disease C4-C5, C5-C6 and C6-C7 with left neural foraminal stenosis at C4-C5, bilateral neural foraminal stenosis at C5-C6 and left neural foraminal stenosis at C6-C7. Impression: 1. No mass, adenopathy or abscess in the face or neck. 2. Calcified right thyroid nodule, previously evaluated in 2019 with recommendation for follow-up. Recommend routine thyroid ultrasound if not alread y performed. 3. Degenerative changes in the cervical spine with neural foraminal stenosis at multiple levels, greatest at C5-C6. ------ Exposure: One or more of the following individualized dose reduction techniques were utilized for this examination: 1. Automated exposure control 2. Adjustment of the mA and/or kV according to patient size 3. Use of iterative reconstruction technique. Electronically signed by: Matti Alicia MD (08/30/2021 12:03 AM) [facility] DICTATED AND SIGNED BY: MATTI ALICIA MD DATE: 08/29/21 [id number] CC: YOLA MEDINA MD; MARISOL GARCIA ~ Heart Score: C/O Chest Pain: N/A Risk Factors: Risk Factors: DM, Current or recent (<one month) smoker, HTN, HLP, family history of CAD, obesity. Risk Scores: Score 0 - 3: 2.5% MACE over next 6 weeks - Discharge Home Score 4 - 6: 20.3% MACE over next 6 weeks - Admit for Clinical Observation Score 7 - 10: 72.7% MACE over next 6 weeks - Early Invasive Strategies Course & Med Decision Making: Course & Med Decision Making Pertinent Labs and Imaging studies reviewed. (See chart for details) Recommend patient follow-up with neurosurgery must follow-up. Take Tylenol and ibuprofen for pain. Follow-up with neurosurgery. May need MRI to fully evaluate cervical neuropathy Impression: 1. Cervical Neuropathy [] [place] Disclaimer: Ty Disclaimer: This electronic medical record was generated, in whole or in part, using a voice recognition dictation system. Departure Departure: Referrals: MARISOL GARCIA (PCP) Ty Disclaimer This chart was dictated in whole or in part using Voice Recognition software in a busy, high-work load, and often noisy Emergency Department environment. It may contain unintended and wholly unrecognized errors or omissions. YOLA MEDINA MD Aug 29, 2021 22:24
[2021-08-29] MEDS ORDERED: LIDOCAINE 1% Multi-Dose 20 ML VIAL. ONE (22:35)
[2021-08-29] MEDS ORDERED: cefTRIAXone IM 1 GM VIAL IM ONE (23:00)
[2021-08-29] MEDS ORDERED: CONTRAST GIVEN. MC PRN (23:00)
[2021-08-29] MEDS ORDERED: LIDOCAINE 1% Multi-Dose 20 ML VIAL. IJ ONE (23:00)
[2021-08-29] MEDS ORDERED: KETOROLAC 60 MG/2 ML VIAL. IM ONE (23:00)
[2021-08-29] MEDS ORDERED: IOHEXOL 300 MG/ML 75 ML VIAL. IV ONE (23:30)
[2021-08-30 00:01] LABS: INFLUENZA A PATIENT NEGATIVE (NEGATIVE); INFLUENZA B PATIENT NEGATIVE (NEGATIVE)
--- NOTE | 2021-08-30 00:05 | RAD ---
CT MAXILLOFACIAL WITHOUT CONTRAST, CT NECK SOFT TISSUE WITH IV CONTRAST History: Right-sided facial, ear and neck pain with swelling. No trauma. Comparison: Thyroid ultrasound 02/22/2019 Technique: CT of the facial bones without contrast. CT of the neck with intravenous contrast. Findings: No mastoid effusion. There is trace right maxillary sinus mucosal thickening. The remainder the paran nancy sinuses are clear. No facial fracture. No aggressive osseous erosive process. The external audit ory canal, middle ear and IACs are unremarkable. The bilateral parotid and submandibular glands are unremarkable. There is peripheral calcification in a right thyroid nodule. No mucosal lesion in the upper aerodigestive tract. No adenopathy. No abscess is identified. No super ficial soft tissue edema or skin thickening. The vasculature is within normal limits. The lung apices are clear. Postsurgical changes from C3-C4 ACDF. Degenerative disc disease C4-C5, C5-C6 and C6-C7 with left neur al foraminal stenosis at C4-C5, bilateral neural foraminal stenosis at C5-C6 and left neural foramina l stenosis at C6-C7. Impression: 1. No mass, adenopathy or abscess in the face or neck. 2. Calcified right thyroid nodule, previously evaluated in 2019 with recommendation for follow-up. R ecommend routine thyroid ultrasound if not already performed. 3. Degenerative changes in the cervical spine with neural foraminal stenosis at multiple levels, gre atest at C5-C6. ------ Exposure: One or more of the following individualized dose reduction techniques were utilized for thi s examination: 1. Automated exposure control 2. Adjustment of the mA and/or kV according to patient size 3. Use of iterative reconstruction technique. Electronically signed by: Matti Cao MD (08/30/2021 12:03 AM) [facility]
[2021-08-30] MEDS ORDERED: methylPREDNISolone ACETATE 40 MG/ML VIAL. IM ONE (01:00)
[2021-08-30] MEDS ORDERED: oxyCODONE/APAP 5/325 1 TAB TABLET PO ONE (01:00)
== END 2021-08-30 01:17 | disposition home health service (06) ==
LOC: ER 21:22
DX: G54.2 Cervical root disorders, not elsewhere classified (principal); F17.210 Nicotine dependence, cigarettes, uncomplicated; Z20.822 Contact with and (suspected) exposure to COVID-19; Z87.440 Personal history of urinary (tract) infections
CPT/HCPCS: 70486; 70491; 87070; 87428; 87880; 96372; 99285; J0696; J1030; J1885; Q9967

== ENCOUNTER 2021-09-11 15:46 | Emergency (ER) | payer MEDICAID ==
[~2021-09-11] VITALS: Ht 167.6 cm; Wt 66.0 kg
[2021-09-11 15:49] VITALS: BP 155/105
--- NOTE | 2021-09-11 15:50 | PHYS DOC ---
Past History Past Medical History: Bipolar, UTI Additional Past Medical Histor: mood swings, SPINAL CORD PROBLEM-UNDIAGNOSED Past Surgical History: Cervical Fusion Smoking: Cigarettes Alcohol Use: None Drug Use: None General Adult HPI: HPI: Patient is a 56-year-old female who presents with right mandible/facial/ear pain. She has had the symptoms intermittently for over 20 years. She describes the pain as sharp and stabbing and feels like a "spasm." She was recently seen here, underwent multiple imaging studies including CT of the face, soft tissue neck, all were unremarkable. She sees a neurologist and a neurosurgeon for pain related to spinal stenosis. She goes to [facility] for this. She has been told not multiple times she should see a dentist, she has not done this. She has not recently spoken with her PCP about this. She reports that she took 2 of her Klonopin as well as tizanidine for this pain. She reports that she is starting to feel drowsy and thinks that the pain is improving already. She denies any swelling, redness, fever, chills, voice changes, difficulty swallowing, difficulty breathing, chest pain, dyspnea, fevers or chills. She denies dizziness, vertigo, global headache, vision loss, temporal pain, facial rash symptoms. Review of Systems: Review of Systems: As per HPI. Allergies: Allergies: Allergies Coded Allergies Type Severity Reaction Last Updated Verified No Known Drug Allergies 08/03/19 No Physical Exam: PE: Constitutional: Well developed, well nourished, no acute distress, non-toxic appearance. [] HENT: Normocephalic, atraumatic, no facial or oral swelling. No evidence of warmth, erythema, soft tissue swelling. No edema. Oropharynx is patent and clear. Mucous members are moist. Scattered dental caries noted, no focal areas of swelling, fluctuance, drainage. Voice is clear, no pooling secretions. External ears are normal bilaterally. TMs are clear bilaterally. Temporal arteries are nontender. No evidence of scalp redness, swelling or contusion. Eyes: PERRL, EOMI, conjunctiva normal, no discharge. No periorbital edema, erythema or contusion noted. No nystagmus. Neck: Normal range of motion, no tenderness, supple, no stridor. Trachea is midline. No thyromegaly. No palpable tenderness of the neck, submandibular areas. No meningismus. Cardiovascular: Well-perfused appearing. Lungs & Thorax: Respirations are nonlabored. Skin: Warm, dry, no erythema, no rash. No evidence of facial or neck swelling, redness, rash, erythema, fluctuance or induration Extremities: No limb deformity, no edema Neurologic: Alert and oriented X 3, normal motor function, normal sensory function, no focal deficits noted. [] Psychologic: Affect is flat, she is cooperative EKG: EKG: [] Radiology/Procedures: Radiology/Procedures: [] Heart Score: C/O Chest Pain: No Risk Factors: Risk Factors: DM, Current or recent (<one month) smoker, HTN, HLP, family h istory of CAD, obesity. Risk Scores: Score 0 - 3: 2.5% MACE over next 6 weeks - Discharge Home Score 4 - 6: 20.3% MACE over next 6 weeks - Admit for Clinical Observation Score 7 - 10: 72.7% MACE over next 6 weeks - Early Invasive Strategies Course & Med Decision Making: Course & Med Decision Making Pertinent Labs and Imaging studies reviewed. (See chart for details) I reviewed the patient's records. I reviewed her imaging studies. There is no indication for repeat imaging or labs or invasive exams at this time. She is a benign appearing exam. I explained that she should follow-up with her PCP, neurologist and also should consider seeing a dentist. She may need to consider a bite guard to wear at night to help with TMJ pain. She manifest no evidence of distress, no evidence of facial trauma, swelling, no evidence of obvious infectious process. Intramuscular morphine is given for pain. No prescriptions will be given for discharge home. Return precautions are given. She verbalizes understanding. Ty Disclaimer: Ty Disclaimer: This electronic medical record was generated, in whole or in part, using a voice recognition dictation system. Departure Departure: Impression: Primary Impression: Chronic facial pain Disposition: HOME / SELF CARE / HOMELESS Condition: STABLE Referrals: MARISOL GARCIA (PCP) Patient Instructions: General Headache Without Cause Additional Instructions: Return to the ER for acute changes in pain, if you are acutely injured, sustained any trauma, if you develop any severe facial or oral swelling, inability to swallow, inability control secretions, difficulty breathing, chest pain, temperature 100.4 or higher or for any other concerns. Please continue taking your medications as directed by your primary care doctor. You should see your dentist and primary care doctor for further evaluation for follow-up. You may wish to discuss further medication regimen such as gabapentin, with your primary care physician. DALILA NATION DO Sep 11, 2021 15:50
[2021-09-11] MEDS ORDERED: MORPHINE SULFATE 4 MG/ML DISP.SYRIN. IM ONE (16:30)
== END 2021-09-11 17:59 | disposition home or self-care (01) ==
LOC: ER 15:46
DX: G89.29 Other chronic pain (principal); R51.9 Headache, unspecified; F31.9 Bipolar disorder, unspecified; F17.210 Nicotine dependence, cigarettes, uncomplicated; Z87.440 Personal history of urinary (tract) infections
CPT/HCPCS: 96372; 99283; J2270